=== PATIENT | female | born 1960 | race Caucasian/White ===

== ENCOUNTER → 2017-01-29 | Outpatient (CLI) | payer MEDICARE, OTHER ==
[~2017-01-29] MED LIST: APIX5TAB GT; CYANLIQ; DONE10TA17 PO; LEVE100012 PO; MEMA10TA PO; SACC250C PO
[2017-01-29 11:46] LABS: Basophils # (auto) 0.1 uL; Basophils % (auto) 2.2 % (0.0-2.0); Eosinophils # (auto) 0.1 uL; Eosinophils % (auto) 4.4 % (0.0-7.0); Hematocrit 39.6 % (36.0-46.0); Hemoglobin 13.4 g/dL (12.2-16.2); Lymphocytes # (auto) 1.2 uL; Lymphocytes % (auto) 51.7 % (10.0-50.0); Mean Corpuscular Hemoglobin 32.2 pg (28.0-32.0); Mean Corpuscular Hgb Conc. 33.8 g/dL (32.0-36.0); Mean Corpuscular Volume 95.5 fL (80.0-100.0); Mean Platelet Volume 10.6 fL (6.9-10.8); Monocytes # (auto) 0.4 uL; Monocytes % (auto) 17.8 % (0.0-12.0); Neutrophils # (auto) 0.6 uL; Neutrophils % (auto) 23.9 % (37.0-80.0); Nucleated Red Blood Cells % 0.1 %; Platelet Count (auto) 153 10^3/uL (140-450); Red Cell Distribution Width 14.1 % (11.8-14.3); White Blood Cell 2.4 10^3/uL (4.4-10.8)
[2017-01-29 11:48] LABS: Urine Bilirubin Negative (Negative); Urine Blood Negative /uL (Negative); Urine Color Yellow (Yellow); Urine Glucose Normal (Normal); Urine Ketone Negative (Negative); Urine Nitrite Negative (Negative); Urine RBC <1 /hpf (0 - 4); Urine Urobilinogen Normal (Negative)
[2017-01-29 12:34] LABS: Albumin 3.1 g/dL (3.4-5.0); BUN/Creatinine Ratio 19.5; Bilirubin, Total 0.3 mg/dL (0.2-1.0); Calcium 8.2 mg/dL (8.5-10.1); Potassium 4.3 mmol/L (3.5-5.1); Total Protein 7.1 g/dL (6.4-8.2)
== END | disposition home or self-care (01) ==
LOC: LAB 10:57
PROVIDERS: ATTEND Internal Medicine
DX: I10 Essential (primary) hypertension (principal); E78.2 Mixed hyperlipidemia; J44.9 Chronic obstructive pulmonary disease, unspecified
CPT/HCPCS: 36415; 80053; 80061; 81001; 84443; 85025

== ENCOUNTER → 2021-01-04 | Outpatient (CLI) | payer MEDICARE ==
[~2021-01-04] MED LIST changes: +ACE104IS IN; -DONE10TA17 PO; +DONE10TA5 PO
[2021-01-04 11:50] LABS: Basophils # (auto) 0.1 10 ^3/uL (0-0.2); Basophils % (auto) 0.9 % (0.0-2.0); Eosinophils # (auto) 0.1 10 ^3/uL (0-0.8); Eosinophils % (auto) 1.8 % (0.0-7.0); Hematocrit 47.2 % (36.0-46.0); Hemoglobin 15.8 g/dL (12.2-16.2); Lymphocytes # (auto) 1.9 10 ^3/uL (0.4-5.4); Lymphocytes % (auto) 31.9 % (10.0-50.0); Mean Corpuscular Hemoglobin 32.5 pg (28.0-32.0); Mean Corpuscular Hgb Conc. 33.4 g/dL (32.0-36.0); Mean Corpuscular Volume 97.3 fL (80.0-100.0); Monocytes # (auto) 0.8 10 ^3/uL (0-1.3); Monocytes % (auto) 12.4 % (0.0-12.0); Neutrophils # (auto) 3.2 10 ^3/uL (1.6-8.6); Red Blood Cells 4.85 10^6/uL (4.0-5.20); Red Cell Distribution Width 14.4 % (11.8-14.3); White Blood Cell 6.1 10^3/uL (4.4-10.8)
[2021-01-04 12:39] LABS: Albumin 2.9 g/dL (3.4-5.0); Calcium 8.7 mg/dL (8.5-10.1); Potassium 3.8 mmol/L (3.5-5.1)
[2021-01-04 12:40] LABS: BUN/Creatinine Ratio 14.1
[2021-01-04 12:43] LABS: Bilirubin, Total 0.5 mg/dL (0.2-1.0); Total Protein 8.1 g/dL (6.4-8.2)
== END | disposition home or self-care (01) ==
LOC: LAB 11:25
PROVIDERS: ATTEND Nurse Practitioner Family
DX: R73.9 Hyperglycemia, unspecified (principal)
CPT/HCPCS: 36415; 80053; 83036; 85025

== ENCOUNTER 2023-06-07 14:07 | Inpatient (IN) | payer OTHER, MEDICARE ==
[~2023-06-07] VITALS: Ht 152.4 cm; Wt 52.1 kg
[~2023-06-07 14:07] MED LIST changes: -DONE10TA5 PO; +DONE10TA9 PO
[2023-06-07 15:33] LABS: Hemoglobin 12.8 g/dL (12.2-16.2); Red Cell Distribution Width 15.6 % (11.8-14.3); White Blood Cell 6.2 10^3/uL (4.4-10.8)
[2023-06-07 15:39] LABS: Hematocrit 39.6 % (36.0-46.0); Mean Corpuscular Hemoglobin 30.5 pg (28.0-32.0); Mean Corpuscular Hgb Conc. 32.3 g/dL (32.0-36.0); Mean Corpuscular Volume 94.4 fL (80.0-100.0)
[2023-06-07 15:46] LABS: Alkaline Phosphatase 74 U/L (46-116); Anion Gap 4 (5-15); Aspartate Aminotransferase 32 U/L (13-40); BUN/Creatinine Ratio 14.1 (10.0-20.0); Blood Urea Nitrogen 10 mg/dL (9-23); Calcium 8.5 mg/dL (8.5-10.1); Carbon Dioxide 34 mmol/L (20-30); Chloride 95 mmol/L (98-107); Glucose 138 mg/dL (74-106); Potassium 3.3 mmol/L (3.5-5.1); Sodium 133 mmol/L (136-145)
[2023-06-07 15:47] LABS: Albumin 3.1 g/dL (3.2-4.8); Bilirubin, Total 0.6 mg/dL (0.2-1.0); Total Protein 7.2 g/dL (5.7-8.2)
[2023-06-07 15:50] LABS: Alanine Aminotransferase < 9 U/L (7-40)
[2023-06-07 15:51] LABS: Band Neutrophils % (manual) 0; Basophils % (manual) 0 (0.0-2.0); Blast Cells 0; Eosinophils % (manual) 0 (0-7); Metamyelocytes % 0; Myelocytes % 0; Promyelocytes % 0; Reactive Lymphocytes 0
[2023-06-07 16:20] LABS: Lymphocytes % (manual) 21 (10.0-50.0); Monocytes % (manual) 22 (0-12)
[2023-06-07 16:21] LABS: Platelet Estimate Adequate
[2023-06-07 16:40] VITALS: PULSE 121; RESP 30; O2SAT 97
[2023-06-07] MEDS: levoFLOXacin 750MG 150 ML IV ONE (17:36)
[2023-06-07] MEDS: SODIUM CHLORIDE 0.9% 1,000 ML IV ONE ×2 (17:36→18:58)
[2023-06-07 18:15] LABS: INR 1.11 (0.9-1.15); Prothrombin Time 11.6 sec (9.3-11.8)
[2023-06-07 18:24] LABS: Lactic Acid w/Reflex 2.1 mmol/L (0.4-2.0)
[2023-06-07 19:40] VITALS: PULSE 88; RESP 22; O2SAT 94
[2023-06-07 21:47] LABS: Urine Bacteria FEW /hpf (None Seen); Urine Blood 3+ /uL (Negative); Urine Clarity CLOUDY (Clear); Urine Color Yellow (Yellow); Urine Mucus FEW (None Seen); Urine Protein, UAD 2+ (Negative); Urine Specific Gravity 1.022 (1.001-1.035); Urine Urobilinogen Normal (Negative); Urine WBC 600 /hpf (0 - 5)
[2023-06-07] MEDS ORDERED: ACETAMINOPHEN 325 MG TAB PO PRN (22:00)
[2023-06-07] MEDS ORDERED: HYDROcodone-ACET 5/325MG TAB JT PRN (22:00)
[2023-06-07] MEDS ORDERED: DOCUSATE SOD 100 MG CAP PO PRN (22:00)
[2023-06-07] MEDS ORDERED: APIXABAN 5 MG TAB JT SCH (22:00)
[2023-06-07] MEDS: DONEPEZIL HYDROCHLORIDE 5 MG TAB JT SCH (22:39)
[2023-06-07] MEDS: MEMANTINE HCL 5 MG TAB JT SCH (22:39)
[2023-06-07] MEDS: levETIRAcetam 1000 mg/100ml 100 ML IV SCH (22:44)
[2023-06-07] MEDS ORDERED: MORPHINE SULFATE INJ 2 MG/ml SYRG IV PRN (23:45)
[2023-06-07] MEDS ORDERED: NITROGLYCERIN 0.4 MG SL TAB SL PRN (23:45)
[2023-06-08] MEDS: ACETAMINOPHEN 650 MG RECT SUPP PR ONE (00:27)
[2023-06-08] MEDS: SODIUM CHLORIDE 0.9% 1,000 ML IV SCH (01:02)
[2023-06-08] MEDS: ALBUMIN 25% 50 ML IV ONE (06:05)
[2023-06-08] MEDS: cefTRIAXone 1GM/50ML D5W 50 ML IV ONE (06:29)
[2023-06-08] MEDS: SODIUM CHLORIDE 0.9% 500 ML IV ONE (06:44)
[2023-06-08 07:26] LABS: Hematocrit 30.5 % (36.0-46.0); Hemoglobin 9.8 g/dL (12.2-16.2); Mean Corpuscular Hemoglobin 30.2 pg (28.0-32.0); Mean Corpuscular Hgb Conc. 32.2 g/dL (32.0-36.0); Mean Corpuscular Volume 93.9 fL (80.0-100.0); Red Blood Cells 3.24 10^6/uL (4.0-5.20); White Blood Cell 5.5 10^3/uL (4.4-10.8)
[2023-06-08 07:35] VITALS: PULSE 88; RESP 16; O2SAT 94
[2023-06-08 07:37] LABS: Basophils % (manual) 0 (0.0-2.0); Blast Cells 0; Eosinophils % (manual) 0 (0-7); Metamyelocytes % 0; Myelocytes % 0; Promyelocytes % 0; Reactive Lymphocytes 0
[2023-06-08 07:43] LABS: Albumin 2.7 g/dL (3.2-4.8); Alkaline Phosphatase 53 U/L (46-116); Anion Gap 4 (5-15); Aspartate Aminotransferase 26 U/L (13-40); BUN/Creatinine Ratio 10.2 (10.0-20.0); Blood Urea Nitrogen 5 mg/dL (9-23); Calcium 7.3 mg/dL (8.5-10.1); Carbon Dioxide 27 mmol/L (20-30); Chloride 106 mmol/L (98-107); Glucose 97 mg/dL (74-106); Potassium 2.9 mmol/L (3.5-5.1); Sodium 137 mmol/L (136-145)
[2023-06-08 07:44] LABS: Bilirubin, Total 0.9 mg/dL (0.2-1.0); Total Protein 5.7 g/dL (5.7-8.2)
[2023-06-08 07:49] LABS: Alanine Aminotransferase < 9 U/L (7-40)
[2023-06-08 07:59] LABS: Band Neutrophils % (manual) 2; Lymphocytes % (manual) 22 (10.0-50.0); Monocytes % (manual) 16 (0-12)
[2023-06-08 08:01] LABS: Anisocytosis Slight; Platelet Estimate Adequate
[2023-06-08] MEDS: ENOXAPARIN SOD 30 MG/0.3 ML SYRINGE SC SCH (09:41)
[2023-06-08] MEDS: FAMOTIDINE (10MG/ML) 2ML VL IV SCH (09:41)
[2023-06-08] MEDS ORDERED: VANCOMYCIN PER PHARMACY 0 MG IV SCH (14:00)
[2023-06-08] MEDS: VANCOMYCIN 750mg/150ml 150 ML IV ONE (14:13)
[2023-06-08] MEDS ORDERED: levoFLOXacin 500MG 100 ML IV SCH (17:00)
[2023-06-08 19:32] VITALS: PULSE 97; RESP 20; O2SAT 97
[2023-06-09] MEDS: VANCOMYCIN 750mg/150ml 150 ML IV SCH ×2 (00:21→12:00)
[2023-06-09] MEDS: cefTRIAXone 1GM/50ML D5W 50 ML IV SCH (05:36)
[2023-06-09 07:30] VITALS: PULSE 82; RESP 16; O2SAT 100
[2023-06-09] MEDS ORDERED: VANCOMYCIN 1GM/200ML 200 ML IV SCH (10:00)
[2023-06-09] MEDS: SODIUM CHLORIDE 0.9% 1,000 ML IV ONE (12:30)
[2023-06-09] MEDS: SODIUM CHLORIDE 0.9% 1,000 ML IV SCH (14:23)
[2023-06-09] MEDS: POTASSIUM CHLORIDE 40 MEQ in D5W 5% 1,000 ML IV SCH (16:30)
[2023-06-09 20:10] VITALS: PULSE 108; RESP 22; O2SAT 94
[2023-06-09] MEDS: VANCOMYCIN 1GM/200ML 0 ML IV ONE (22:41)
[2023-06-10 05:18] LABS: Basophils # (auto) 0 10 ^3/uL (0-0.2); Basophils % (auto) 1.3 % (0.0-2.0); Eosinophils # (auto) 0.4 10 ^3/uL (0-0.8); Eosinophils % (auto) 9.4 % (0.0-7.0); Hematocrit 34.8 % (36.0-46.0); Hemoglobin 11.5 g/dL (12.2-16.2); Lymphocytes # (auto) 0.9 10 ^3/uL (0.4-5.4); Lymphocytes % (auto) 22.7 % (10.0-50.0); Mean Corpuscular Hemoglobin 30.9 pg (28.0-32.0); Mean Corpuscular Volume 93.8 fL (80.0-100.0); Monocytes # (auto) 0.6 10 ^3/uL (0-1.3); Monocytes % (auto) 15.3 % (0.0-12.0); Neutrophils % (auto) 51.3 % (37.0-80.0); Red Blood Cells 3.71 10^6/uL (4.0-5.20); Red Cell Distribution Width 15.3 % (11.8-14.3); White Blood Cell 3.8 10^3/uL (4.4-10.8)
[2023-06-10 05:25] LABS: Anion Gap 9 (5-15); Carbon Dioxide 24 mmol/L (20-30); Chloride 104 mmol/L (98-107); Potassium 2.8 mmol/L (3.5-5.1); Sodium 137 mmol/L (136-145)
[2023-06-10 05:26] LABS: Calcium 7.8 mg/dL (8.5-10.1)
[2023-06-10 05:31] LABS: Glucose 102 mg/dL (74-106)
[2023-06-10 05:51] LABS: BUN/Creatinine Ratio 10.4 (10.0-20.0); Blood Urea Nitrogen < 5 mg/dL (9-23)
[2023-06-10 07:35] VITALS: RESP 16
[2023-06-10 20:50] VITALS: PULSE 94; RESP 19; O2SAT 94
[2023-06-10 22:00] VITALS: BP 122/66; PULSE 113; RESP 19; TEMP 98.7; O2SAT 94
[2023-06-10] MEDS ORDERED: LEVE5SOL PO (22:23)
[2023-06-11] VITALS (9 sets, daily range): BP systolic 103–125; BP diastolic 48–73; PULSE 70–113; RESP 16–20; TEMP 97.9–99.1; O2SAT 95–100
[2023-06-11 05:15] LABS: INR 1.26 (0.9-1.15); Partial Thromboplastin Time 29.3 SEC (24.5-34.5)
[2023-06-11 05:27] LABS: Alkaline Phosphatase 60 U/L (46-116); Anion Gap 6 (5-15); Calcium 7.3 mg/dL (8.5-10.1); Carbon Dioxide 21 mmol/L (20-30); Chloride 107 mmol/L (98-107); Glucose 93 mg/dL (74-106); Potassium 3.2 mmol/L (3.5-5.1); Sodium 134 mmol/L (136-145)
[2023-06-11 05:28] LABS: Albumin 2.3 g/dL (3.2-4.8)
[2023-06-11 05:29] LABS: Alanine Aminotransferase < 9 U/L (7-40); Aspartate Aminotransferase 19 U/L (13-40); BUN/Creatinine Ratio 12.8 (10.0-20.0); Bilirubin, Total 0.7 mg/dL (0.2-1.0); Blood Urea Nitrogen < 5 mg/dL (9-23); Total Protein 5.3 g/dL (5.7-8.2)
[2023-06-11] MEDS ORDERED: ONDANSETRON HCL 4 MG/2 ML VIAL ONE (12:35)
[2023-06-11] MEDS ORDERED: GLYCOPYRROLATE 0.2 MG/ML 1ML VIAL ONE (12:35)
[2023-06-11] MEDS ORDERED: MIDAZOLAM HCL 2MG/2ML 2ml VIAL (1mg/ml) ONE (12:35)
[2023-06-11] MEDS ORDERED: KETAMINE 50mg/ML 1ml syringe ONE (12:35)
[2023-06-11] MEDS: ceFAZolin 2 GM/D5W50ml 50 ML IV ONE (13:50)
[2023-06-11] MEDS: AMOXICILLIN/CLAVULAN 500 MG TAB PO ONE (14:00)
[2023-06-11] MEDS: ONDANSETRON HCL 4 MG/2 ML VIAL IV PRN (14:18)
[2023-06-11] MEDS: AMOXICILLIN/CLAVULAN 500 MG TAB PO SCH (21:13)
[2023-06-12] VITALS (7 sets, daily range): BP systolic 96–111; BP diastolic 59–70; PULSE 99–115; RESP 20–28; TEMP 37.2; O2SAT 98–100
[2023-06-12] MEDS ORDERED: AUG875T PO (08:42)
== END 2023-06-12 18:15 | disposition hospice, home (50) | DRG 919 ==
LOC: EDBD 14:07 → ER 14:07 → TELE 23:34 → TELE-CENTR 06-10 20:24
PROVIDERS: ADMIT Nurse Practitioner Family; ATTEND Family Medicine
PROC: 05HD33Z Insertion of Infusion Device into Right Cephalic Vein, Percutaneous Approach (ICD-10-PCS; 2023-06-07)
PROC: B54MZZA Ultrasonography of Right Upper Extremity Veins, Guidance (ICD-10-PCS; 2023-06-07)
PROC: 0DC68ZZ Extirpation of Matter from Stomach, Via Natural or Artificial Opening Endoscopic (ICD-10-PCS; 2023-06-11)
PROC: 0D20XUZ Change Feeding Device in Upper Intestinal Tract, External Approach (ICD-10-PCS; 2023-06-11)
PROC: 0DH63UZ Insertion of Feeding Device into Stomach, Percutaneous Approach (ICD-10-PCS; principal; 2023-06-11 12:38)
DX: T85.518A Breakdown (mechanical) of other gastrointestinal prosthetic devices, implants and grafts, initial encounter (principal); L89.154 Pressure ulcer of sacral region, stage 4; G93.40 Encephalopathy, unspecified; N39.0 Urinary tract infection, site not specified; L03.90 Cellulitis, unspecified; R78.81 Bacteremia; Z43.1 Encounter for attention to gastrostomy; T85.528A Displacement of other gastrointestinal prosthetic devices, implants and grafts, initial encounter; E86.0 Dehydration; F02.C0 Dementia in other diseases classified elsewhere, severe, without behavioral disturbance, psychotic disturbance, mood disturbance, and anxiety; D64.9 Anemia, unspecified; R13.10 Dysphagia, unspecified; J44.9 Chronic obstructive pulmonary disease, unspecified; E87.6 Hypokalemia; G30.9 Alzheimer's disease, unspecified; Z82.49 Family history of ischemic heart disease and other diseases of the circulatory system; Z87.442 Personal history of urinary calculi; Z79.899 Other long term (current) drug therapy
CPT/HCPCS: 36415; 71045; 80048; 80053; 80202; 81001; 82962; 83605; 85007; 85025; 85027; 85610; 85730; 87040; 87077; 87086; 87088; 87186; 87205; 96365; G0378; J1956; J2250; J2405; J3490